=== PATIENT | female | born 1975 | race Hispanic/Latino ===

== ENCOUNTER 2018-10-31 11:02 | Emergency (ER) | payer OTHER ==
[~2018-10-31] VITALS: Ht 157.5 cm; Wt 80.7 kg
--- OUTSIDE RECORDS SUMMARY | 2018-10-31 11:05 | XMS REPORT ---
[facility] Address Unknown Phone Unavailable Care Team Providers Care Peripatologist Name Role Phone Unavailable Unavailable Payers Payer Name Policy Type Policy Number Effective Date Expiration Date Problems This patient has no known problems. Allergies, Adverse Reactions, Alerts Allergy Name Allergy Type Status Severity Reaction(s) Onset Date Inactive Date Treating Clinician Comments No Known Allergies DA Active U 2018-09-03 00:00:00 No Known Drug Intolerances DA Active U 2014-01-07 00:00:00 No Known Contrast Allergies DA Active U 2006-09-13 00:00:00 No Known Drug Allergies DA Active U 2006-09-13 00:00:00 No Known Food Allergies DA Active U 2006-09-13 00:00:00 No Known Other Allergies DA Active U 2006-09-13 00:00:00 Medications This patient has no known medications. Results Test Description Test Time Test Comments Text Results Atomic Results Result Comments BASIC METABOLIC PANEL 2018-09-03 13:34:00 SODIUM (test code=NA) 140 mmol/L 136-145 POTASSIUM (test code=K) 3.8 mmol/L 3.5-5.1 CHLORIDE (test code=CL) 109.0 mmol/L 98-107 CARBON DIOXIDE (test code=CO2) 24.0 mmol/L 21-32 ANION GAP (test code=GAP) 10.8 10-20 GLUCOSE (test code=GLU) 94 mg/dL 74-106 BLOOD UREA NITROGEN (test code=BUN) 15 mg/dL 7-18 GLOMERULAR FILTRATION RATE (test code=GFR) > 60 mL/min >=60 Estimated GFR by using Modified MDRD formula.Chronic kidney disease is defined as either kidney damageor GFR <60 mL/min/1.73 m2 for >3 months. CREATININE (test code=CREAT) 0.50 mg/dL 0.55-1.02 Note change in reference range due to change in reagent. BUN/CREATININE RATIO (test code=BUN/CREA) 30.0 10-20 CALCIUM (test code=CA) 8.7 mg/dL 8.5-10.1 CREATINE KINASE (CK)2018-09-03 13:34:00* Test Item Value Reference Range Comments CREATINE KINASE (CK) (test code=CK) 112 IUnit/L 26-208 HCG SERUM [id number] 13:34:00* Test Item Value Reference Range Comments HCG SERUM QUAL (test code=HCGQL) NEGATIVE NEGATIVE This HCGQL test is NOT applicable for MALE patients.Check with nurse about probable order error.If Tumor Marker Test needed, nurse should order test "HCGTU"(Test #550.47416) [id number] 13:34:00* Test Item Value Reference Range Comments TROPONIN-I (test code=TROPI) <0.015 ng/mL 0-0.045 BASIC METABOLIC [id number] 13:17:00* Test Item Value Reference Range Comments SODIUM (test code=NA) 140 mmol/L 136-145 POTASSIUM (test code=K) 3.8 mmol/L 3.5-5.1 CHLORIDE (test code=CL) 109.0 mmol/L 98-107 CARBON DIOXIDE (test code=CO2) mmol/L 21-32 ANION GAP (test code=GAP) 10-20 GLUCOSE (test code=GLU) mg/dL 74-106 BLOOD UREA NITROGEN (test code=BUN) mg/dL 7-18 GLOMERULAR FILTRATION RATE (test code=GFR) mL/min >=60 CREATININE (test code=CREAT) mg/dL 0.55-1.02 BUN/CREATININE RATIO (test code=BUN/CREA) 10-20 CALCIUM (test code=CA) mg/dL 8.5-10.1 CREATINE KINASE (CK)2018-09-03 13:17:00* Test Item Value Reference Range Comments CREATINE KINASE (CK) (test code=CK) IUnit/L 26-208 HCG SERUM [id number] 13:17:00* Test Item Value Reference Range Comments HCG SERUM QUAL (test code=HCGQL) NEGATIVE NEGATIVE This HCGQL test is NOT applicable for MALE patients.Check with nurse about probable order error.If Tumor Marker Test needed, nurse should order test "HCGTU"(Test #[id number]) [id number] 13:17:00* Test Item Value Reference Range Comments TROPONIN-I (test code=TROPI) ng/mL 0-0.045 PROTHROMBIN [id number] 13:16:00* Test Item Value Reference Range Comments PROTHROMBIN TIME PATIENT (test code=PTP) 11.3 seconds 9.0-14.0 INTERNATIONAL NORMAL RATIO (test code=INR) 0.9 0.8-1.2 The therapeutic range for oral anticoagulant therapy formost indications is an international normalized ratio (INR)of between 2.0 and 3.0. The recommended therapeutic INRrange for various clinical situations is listed below: Clinical Situation INR range Pulmonary e mbolism treatment (2.0-3.0)Venous thrombosis treatmentVenous thrombosis prophylaxis (high risk surgery)Prevention of systemic embolism from: Acute myocardial infarction Valvular heart disease Atrial fibrillation Mechanical prosthetic heart valves (2.5-3.5) IS PATIENT ON ANTICOAGULANTS? NTHROMBOPLASTIN TIME [id number] 13:16:00* Test Item Value Reference Range Comments THROMBOPLASTIN TIME PARTIAL (test code=PTT) 27.7 seconds 25.0-36.5 IS PATIENT ON ANTICOAGULANTS? NBASIC METABOLIC [id number] 13:15:00* Test Item Value Reference Range Comments SODIUM (test code=NA) mmol/L 136-145 POTASSIUM (test code=K) mmol/L 3.5-5.1 CHLORIDE (test code=CL) mmol/L 98-107 CARBON DIOXIDE (test code=CO2) mmol/L 21-32 ANION GAP (test code=GAP) 10-20 GLUCOSE (test code=GLU) mg/dL 74-106 BLOOD UREA NITROGEN (test code=BUN) mg/dL 7-18 GLOMERULAR FILTRATION RATE (test code=GFR) mL/min >=60 CREATININE (test code=CREAT) mg/dL 0.55-1.02 BUN/CREATININE RATIO (test code=BUN/CREA) 10-20 CALCIUM (test code=CA) mg/dL 8.5-10.1 CREATINE KINASE (CK)2018-09-03 13:15:00* Test Item Value Reference Range Comments CREATINE KINASE (CK) (test code=CK) IUnit/L 26-208 HCG SERUM [id number] 13:15:00* Test Item Value Reference Range Comments HCG SERUM QUAL (test code=HCGQL) NEGATIVE NEGATIVE This HCGQL test is NOT applicable for MALE patients.Check with nurse about probable order error.If Tumor Marker Test needed, nurse should order test "HCGTU"(Test #[id number]) [id number] 13:15:00* Test Item Value Reference Range Comments TROPONIN-I (test code=TROPI) ng/mL 0-0.045 CBC W/O [id number] 13:07:00* Test Item Value Reference Range Comments WHITE BLOOD CELL (test code=WBC) 10.1 K/mm3 4.5-12.5 RED BLOOD CELL (test code=RBC) 4.55 mill/mm3 3.7-5.2 HEMOGLOBIN (test code=HGB) 12.9 gram/dL 11.5-15.5 HEMATOCRIT (test code=HCT) 40.6 % 36.0-46.0 MEAN CELL VOLUME (test code=MCV) 89.2 fL 80-98 MEAN CELL HGB (test code=MCH) 28.4 picogram 27.0-33.0 MEAN CELL HGB CONCETRATION (test code=MCHC) 31.8 gram/dL 33.0-36.0 RED CELL DISTRIBUTION WIDTH (test code=RDW) 13.6 % 11.6-16.2 PLATELET COUNT (test code=PLT) 283 K/mm3 150-450 MEAN PLATELET VOLUME (test code=MPV) 10.6 fL 6.7-11.0 CBC W/O [id number] 13:06:00* Test Item Value Reference Range Comments WHITE BLOOD CELL (test code=WBC) K/mm3 4.5-12.5 RED BLOOD CELL (test code=RBC) mill/mm3 3.7-5.2 HEMOGLOBIN (test code=HGB) 12.9 gram/dL 11.5-15.5 HEMATOCRIT (test code=HCT) 40.6 % 36.0-46.0 MEAN CELL VOLUME (test code=MCV) fL 80-98 MEAN CELL HGB (test code=MCH) picogram 27.0-33.0 MEAN CELL HGB CONCETRATION (test code=MCHC) gram/dL 33.0-36.0 RED CELL DISTRIBUTION WIDTH (test code=RDW) % 11.6-16.2 PLATELET COUNT (test code=PLT) K/mm3 150-450 MEAN PLATELET VOLUME (test code=MPV) fL 6.7-11.0 - CT HEAD/BRAIN W/O [id number] 12:54:00 Name: MARTINARORYCRISTA BALES [facility] : 1975 Age/S: 43 / F [address] [facility] Unit #: [id number] Loc: [place] [address] Phys: Marsha Reyes MD Acct: [id number] Dis Date: Status: REG ER PHONE #: [phone] Exam Date: 09/03/2018 1230 FAX #: [phone] Reason: LEFT SIDED NUMBNESS EXAMS: CPT CODE: [id number] CT HEAD/BRAIN W/O CONT 02971 HISTORY: LEFT SIDED NUMBNESS TECHNIQUE: Noncontrast 2.[address] of the head. Examination acquired within 24 hours of arrival. Automated exposure control for dose reduction; DLP: 695 mGy-cm. COMPARISON: Brain MRI 01/07/14 FINDINGS: No acute hemorrhage. No CT evidence of acute infarct. No intracranial mass or mass effect. No hydrocephalus. No extra-axial fluid collection. Visualized paranasal sinuses are clear. Mastoid air cells and middle ear cavities are clear. Orbital contents are unremarkable. Calvarium and skull base are intact. IMPRESSION: No CT evidence of acute infarct. MRI would be more sensitive if there is continued clinical concern. No acute intracranial hemorrhage. at 1254 Reported and signed by: Mahogany Car D.O. CC: Marsha Reyes MD Technologist:JOSEPH MARROQUIN CTDI: DLP: Trnscb Date/Time: 09/03/2018 (2294) [email or web address] PAGE 1 Signed Report
[2018-10-31] MEDS ORDERED: IBUPROFEN 200 MG TAB PO STA (11:13)
[2018-10-31] MEDS ORDERED: ACETAMINOPHEN 325 MG TAB PO ONE (11:15)
[2018-10-31] MEDS ORDERED: ONDANSETRON HCL 4 MG ORAL DISINTEGRATING TAB PO ONE (11:15)
--- NOTE | 2018-10-31 12:29 | Diagnostic Imaging Report ---
Pelvis, 1 view. Right hip, 2 views. Right ankle, 3 views. Right elbow, 2 views. History: Pain. Findings: The soft tissues are normal. Bone mineralization is normal. There is no evidence of acute fracture or dislocation. There are no lytic or sclerotic lesions. DJD of the right elbow and right ankle are present. An enthesophyte is present in the right upper trochanter. The hip joints are within normal limits. Bone island is present above the right acetabulum. Surgical hardware is present in the proximal right foot with fusion of the proximal joints. IMPRESSION: No acute osseous abnormality. Degenerative changes of the right elbow and postsurgical changes in the right foot are noted. Signed by: Félix Keita on 10/31/2018 12:26 PM
[2018-10-31 12:54] VITALS: BP 156/78
== END 2018-10-31 12:56 | disposition home or self-care (01) ==
LOC: FSED 11:02
DX: G89.11 Acute pain due to trauma (principal); M25.571 Pain in right ankle and joints of right foot; S93.431A Sprain of tibiofibular ligament of right ankle, initial encounter; M25.521 Pain in right elbow; M25.551 Pain in right hip; W01.0XXA Fall on same level from slipping, tripping and stumbling without subsequent striking against object, initial encounter; Y93.01 Activity, walking, marching and hiking; Y92.008 Other place in unspecified non-institutional (private) residence as the place of occurrence of the external cause
CPT/HCPCS: 81025; 99283

== ENCOUNTER 2019-12-30 13:27 | Emergency (ER) | payer OTHER ==
[~2019-12-30] VITALS: Ht 160 cm; Wt 81.2 kg
--- NOTE | 2019-12-30 13:33 | Emergency Department Note ---
History of Present Illnes History of Present Illness Chief Complaint: abdominal pain History of Present Illness This is a 44 year old female, with a history of GERD, polio, anemia, and tennis elbow who presents with a six-day history of intermittent, right sided abdominal pain. She describes the pain as a "strong ache, boring pain," that is located primarily in the right upper quadrant, but radiates throughout the abdomen. She denies any radiation to the back or flank. She has had no associated nausea or vomiting. She did develop a low-grade fever last night of 99. Patient also began to have diarrhea yesterday, with multiple liquid, yellow stools. She states that she has had 6 loose bowel movements today, without blood or mucus. She denies any dysuria, frequency, or urgency. Abdominal surgeries include 3 and a tubal ligation. Patient was seen by her primary care physician last week, who ordered an ultrasound of her abdomen. His performed on 12/28/2019, and the results are pending. Historian: Patient Arrival Mode: Car Log Operations Coordinator Required: Yes (spouse translated) Onset (how long ago): day(s) (6) Location: right sided Quality: achy, crampy, boring pain Radiation: Reports non-radiation Severity: moderate Onset quality: sudden Duration (how long): day(s) (6) Timing of current episode: intermittent Progression: waxing and waning Chronicity: new Context: Denies recent illness, Denies recent surgery, Denies trauma/injury Relieving factors: none Exacerbating factors: eating (worsened last night) Associated symptoms: Reports fever/chills (low grade); Denies chest pain, Denies cough, Denies nausea/vomiting, Denies shortness of breath Treatments prior to arrival: none Risk factors: obesity Past Medical/Family History Physician Review I have reviewed the patient's past medical and family history. Any updates have been documented here. Past Medical History Recent Fever: Yes Clinical Suspicion of Infectio: No New/Unexplained Change in Ment: No Past Medical History: GERD Other Medical History: POLIO Past Surgical History: Tubal Ligation, (x3) Other Surgery: POLIO SURGERIES FOR HER LEGS Social History Smoking Cessation: Never Smoker Alcohol Use: None Any Illegal Drug Use: No TB Exposure/Symptoms: No Physically hurt or threatened: No Family History Family history of heart diseas: No Other Last Tetanus: UNKNOWN Any Pre-Existing Lines (PICC,: No Is patient up to date on immun: No Review of Systems Review of Systems Constitutional: Reports chills; Denies fever, Denies malaise, Denies weakness EENTM: Reports no symptoms Cardiovascular: Denies chest pain, Denies palpitations Respiratory: Denies chest congestion, Denies cough, Denies pain with cough, Denies dyspnea Gastrointestinal: Reports abdominal pain, Reports diarrhea; Denies constipation, Denies nausea, Denies vomiting Genitourinary: Denies discharge, Denies dysuria, Denies frequency Musculoskeletal: Denies back pain, Denies joint swelling Integumentary: Denies change in color, Denies rash Neurological: Denies headache, Denies numbness, Denies paresthesia Endocrine: Reports no symptoms Review of other systems: All other systems negative Physical Exam Related Data Allergies: Coded Allergies: No Known Allergies (Unverified , 10/31/18) Vital signs reviewed: Yes Physical Exam CONSTITUTIONAL Constitutional: Present well-developed, Present well-nourished, Present obese; Absent distressed, Absent ill appearing HENT HENT: Present normocephalic, Present atraumatic, Present oropharynx clear/moist, Present nose normal HENT L/R: Present left ext ear normal, Present right ext ear normal EYES Eyes: Reports PERRL, Reports conjunctivae normal NECK Neck: Present ROM normal PULMONARY Pulmonary: Present effort normal, Present breath sounds normal CARDIOVASCULAR Cardiovascular: Present regular rhythm, Present heart sounds normal, Present capillary refill normal, Present normal rate GASTROINTESTINAL Abdominal: Present soft, Present bowel sounds normal, Present tender (RUQ and RLQ ttp, wihtout rebound or guarding); Absent distension, Absent guarding, Absent rebound, Absent left CVA tenderness, Absent right CVA tenderness GENITOURINARY Genitourinary: Present exam deferred SKIN Skin: Present warm, Present dry; Absent rash, Absent jaundiced MUSCULOSKELETAL Musculoskeletal: Present ROM normal; Absent swelling NEUROLOGICAL Neurological: Present alert, Present oriented x 3; Absent cranial nerve deficit PSYCHOLOGICAL Psychological: Present mood/affect normal, Present behavior normal Results Laboratory Laboratory CBC - nl except WBC = 10.8, H/H = 9.9/31.7; CMP - nl except for K+ = 3.2; UPT - negative UA - glu - 100 mg/dl, timbo - small, ket = 80 mg/dl, blo - lg, pro = 100 mg/dl; Lab results reviewed: Yes Imaging Imaging results reviewed: Yes Impressions Exam Date: 12/30/19 Exam Time: 1510 REPORT STATUS: Signed EXAMINATION: CT of the abdomen and pelvis with contrast. TECHNIQUE: Spiral CT images of the abdomen and pelvis were performed from the lung bases to the lesser trochanters after the intravenous administration of 100 cc of Isovue 370 and the oral administration of water. Coronal and sagittal reformatted images were obtained. COMPARISON: None. CLINICAL HISTORY:Right upper quadrant abdominal pain with diarrhea for 2 days DISCUSSION: ABDOMEN/PELVIS: LOWER THORAX:Unremarkable. HEPATOBILIARY: No focal hepatic lesions. No intra or extrahepatic biliary ductal dilation. GALLBLADDER: No radio-opaque stones or sludge. No wall thickening. SPLEEN: No splenomegaly. PANCREAS: No focal masses or ductal dilatation. ADRENALS: No adrenal nodules. KIDNEYS/URETERS: No hydronephrosis, stones, or solid mass lesions. PELVIC ORGANS/BLADDER: Bladder and uterus are unremarkable. No adnexal masses. 2.6 cm well-circumscribed fluid density simple follicular cyst in the right ovary (series 2, image 73). PERITONEUM/RETROPERITONEUM: No free air or fluid. LYMPH NODES: No intra-abdominal, retroperitoneal, pelvic or inguinal lymphadenopathy. Mildly prominent although subcentimeter lymph nodes in the ileocolic vessel distribution (series 2, image 43). VESSELS: The celiac trunk,superior and inferior mesenteric and bilateral renal arteries are patent The portal, superior mesenteric and splenic veins are patent. GI TRACT: Mild to moderate circumferential wall thickening involving the cecum, ascending, distal transverse, descending, and proximal sigmoid colon with associated mild prominence of the vasa recta and very mild surrounding stranding, predominantly in the right colon (best visualized on coronal image 50, 34 and 60). Appendix is well identified and normal in caliber. Small bowel shows no wall thickening, dilation or obstruction. Stomach is unremarkable. BONES AND SOFT TISSUE: No aggressive lytic or suspicious focal sclerotic lesions . Mildly degenerated disks at L4-L5 and L3-L4 with mild associated leftward curvature. Marked fatty atrophy of the right gluteus yahaira, medius and minimus muscles. Mild fatty atrophy of the paraspinal muscles. IMPRESSION: 1. Findings consistent with colitis, which may be of infectious or inflammatory etiology. No evidence of perforation or abscess formation. 2. Marked fatty atrophy of the right gluteal musculature and to a lesser degree paraspinal muscles. Signed by: Dr. Tiera Loaiza M.D. on 12/30/2019 3:55 PM Dictated By: TIERA LOAIZA MD 54 Transcribed By: SHAKIRA on 12/30/191554 COPY TO: PALMA MUNOZ MD~ Diagnostics Tests Diagnostic test(s) reviewed: Yes Assessment & Plan Medical Decision Making MDM Recommend a BLAND diet, avoiding FRIED, FATTY, FAST, AND SPICY foods. Follow the LOW Residue diet provided. You may Take IMODIUM AD - 1 tab 4x/day, as needed, for diarrhea. Drink plenty of fluids, especially water, Pedialyte and G-2 gatorade. Avoid juices and sodas, as these can make diarrhea worse. Follow-up with your Home Maker, regarding this ER visit, and the diagnosis of "Colitis." Return to the ED, if your symptoms worsen. Assessment & Plan Final Impression: (1) Colitis (2) Hypokalemia (3) Anemia (4) Chronic GERD Depart Disposition: HOME, SELF-intermediate Meds Active Scripts Dicyclomine Hcl (DICYCLOMINE HCL) 20 Mg Tablet, 1 TAB PO Q6H PRN for abdominal pain, #30 TAB 0 Refills Prov:PALMA MUNOZ MD 12/30/19 Ondansetron (ONDANSETRON ODT) 8 Mg Tab.rapdis, 4 MG PO Q6H for nausea, #30 TAB 0 Refills Prov:PALMA MUNOZ MD 12/30/19 Metronidazole (METRONIDAZOLE) 500 Mg Tablet, 500 MG PO TID for infection for 10 Days, #30 TAB 0 Refills Prov:PALMA MUNOZ MD 12/30/19 Ciprofloxacin Hcl (CIPRO) 500 Mg Tablet, 1 TAB PO BID for infection for 10 Days, #20 MG 0 Refills Prov:PALMA MUONZ MD 12/30/19 PALMA MUNOZ MD Dec 30, 2019 13:33
[2019-12-30] MEDS ORDERED: SODIUM CHLORIDE 0.9% 1000ML 1,000 ML IV SCH (14:30)
[2019-12-30] MEDS ORDERED: POTASSIUM CHLORIDE 20 MEQ TAB CR PO STA (14:31)
[2019-12-30] MEDS ORDERED: SODIUM CHLORIDE 0.9% 50ML 50 ML ONE (15:08)
[2019-12-30] MEDS ORDERED: IOPAMIDOL 370 MG/ML 200 ML INFUS..BTL INJ ONE (15:09)
--- NOTE | 2019-12-30 15:58 | Diagnostic Imaging Report ---
EXAMINATION: CT of the abdomen and pelvis with contrast. TECHNIQUE: Spiral CT images of the abdomen and pelvis were performed from the lung bases to the lesser trochanters after the intravenous administration of 100 cc of Isovue 370 and the oral administration of water. Coronal and sagittal reformatted images were obtained. COMPARISON: None. CLINICAL HISTORY:Right upper quadrant abdominal pain with diarrhea for 2 days DISCUSSION: ABDOMEN/PELVIS: LOWER THORAX:Unremarkable. HEPATOBILIARY: No focal hepatic lesions. No intra or extrahepatic biliary ductal dilation. GALLBLADDER: No radio-opaque stones or sludge. No wall thickening. SPLEEN: No splenomegaly. PANCREAS: No focal masses or ductal dilatation. ADRENALS: No adrenal nodules. KIDNEYS/URETERS: No hydronephrosis, stones, or solid mass lesions. PELVIC ORGANS/BLADDER: Bladder and uterus are unremarkable. No adnexal masses. 2.6 cm well-circumscribed fluid density simple follicular cyst in the right ovary (series 2, image 73). PERITONEUM/RETROPERITONEUM: No free air or fluid. LYMPH NODES: No intra-abdominal, retroperitoneal, pelvic or inguinal lymphadenopathy. Mildly prominent although subcentimeter lymph nodes in the ileocolic vessel distribution (series 2, image 43). VESSELS: The celiac trunk,superior and inferior mesenteric and bilateral renal arteries are patent The portal, superior mesenteric and splenic veins are patent. GI TRACT: Mild to moderate circumferential wall thickening involving the cecum, ascending, distal transverse, descending, and proximal sigmoid colon with associated mild prominence of the vasa recta and very mild surrounding stranding, predominantly in the right colon (best visualized on coronal image 50, 34 and 60). Appendix is well identified and normal in caliber. Small bowel shows no wall thickening, dilation or obstruction. Stomach is unremarkable. BONES AND SOFT TISSUE: No aggressive lytic or suspicious focal sclerotic lesions . Mildly degenerated disks at L4-L5 and L3-L4 with mild associated leftward curvature. Marked fatty atrophy of the right gluteus yahaira, medius and minimus muscles. Mild fatty atrophy of the paraspinal muscles. IMPRESSION: 1. Findings consistent with colitis, which may be of infectious or inflammatory etiology. No evidence of perforation or abscess formation. 2. Marked fatty atrophy of the right gluteal musculature and to a lesser degree paraspinal muscles. Signed by: Dr. Sukhjinder Ely M.D. on 12/30/2019 3:55 PM
[2019-12-30] MEDS ORDERED: CIPRO500 MG PO (16:14)
[2019-12-30] MEDS ORDERED: METRONIDAZOLE500 MG PO (16:16)
[2019-12-30] MEDS ORDERED: ONDANSETRON ODT8 MG PO (16:18)
[2019-12-30] MEDS ORDERED: DICYCLOMINE HCL20 MG PO (16:39)
== END 2019-12-30 16:46 | disposition home or self-care (01) ==
LOC: FSED 14:17
DX: R10.11 Right upper quadrant pain (principal); K52.9 Noninfective gastroenteritis and colitis, unspecified; K21.9 Gastro-esophageal reflux disease without esophagitis; E87.6 Hypokalemia; D64.9 Anemia, unspecified; Z86.12 Personal history of poliomyelitis
CPT/HCPCS: 74177; 80053; 81003; 81025; 85025; 99284; J7030; Q9967

== ENCOUNTER → 2020-01-17 | Day surgery (SDC) | payer OTHER ==
[~2020-01-17] MED LIST: CIPRO500 MG PO; DICYCLOMINE HCL20 MG PO; FAMOTIDINE20 MG PO; LIDOCAINE HCL 2% LOCAL INJ 5 ML SDV VIAL INJ ONE; METRONIDAZOLE500 MG PO; OMEPRAZOLE40 MG PO; ONDANSETRON ODT8 MG PO; PROPOFOL IV EMULSION 10 MG/ML 20 ML VIAL ONE
[2020-01-17 09:15] VITALS: BP 123/78
== END | disposition home or self-care (01) ==
LOC: OR 06:23
PROVIDERS: ATTEND Internal Medicine Gastroenterology
DX: D50.9 Iron deficiency anemia, unspecified (principal); K29.50 Unspecified chronic gastritis without bleeding; K50.00 Crohn's disease of small intestine without complications; K63.3 Ulcer of intestine; K21.9 Gastro-esophageal reflux disease without esophagitis; K64.8 Other hemorrhoids; Z71.3 Dietary counseling and surveillance; E66.9 Obesity, unspecified; Z01.812 Encounter for preprocedural laboratory examination; Z11.59 Encounter for screening for other viral diseases; Z68.32 Body mass index [BMI] 32.0-32.9, adult; Z86.12 Personal history of poliomyelitis
CPT/HCPCS: 43239; 45380; 81025; J2001; J2704; U0002; 45378

== ENCOUNTER 2020-10-13 16:35 | Emergency (ER) | payer OTHER ==
[~2020-10-13] VITALS: Ht 160 cm; Wt 89.0 kg
[~2020-10-13 16:35] MED LIST changes: -LIDOCAINE HCL 2% LOCAL INJ 5 ML SDV VIAL INJ ONE; -PROPOFOL IV EMULSION 10 MG/ML 20 ML VIAL ONE
[2020-10-13] MEDS ORDERED: SODIUM CHLORIDE 0.9% 1000ML 1,000 ML IV STA (17:07)
[2020-10-13] MEDS ORDERED: FAMOTIDINE 20 MG/2 ML VIAL IV ONE ×2 (17:15→17:31)
[2020-10-13] MEDS ORDERED: KETOROLAC TROMETHAMINE 30 MG/ML VIAL IV ONE (17:15)
[2020-10-13] MEDS ORDERED: ONDANSETRON HCL INJ 2MG/ML 2ML 2 MG/ML VIAL IV ONE (17:15)
[2020-10-13] MEDS ORDERED: ONDANSETRON HCL INJ 2MG/ML 2ML 2 MG/ML VIAL ONE (17:30)
[2020-10-13] MEDS ORDERED: SODIUM CHLORIDE 0.9% 1000ML 1,000 ML ONE (17:30)
[2020-10-13] MEDS ORDERED: KETOROLAC TROMETHAMINE 30 MG/ML VIAL ONE (17:30)
[2020-10-13] MEDS ORDERED: SODIUM CHLORIDE 0.9% 50ML 50 ML ONE (17:33)
[2020-10-13] MEDS ORDERED: IOPAMIDOL 370 MG/ML 200 ML INFUS..BTL INJ ONE (17:34)
[2020-10-13] MEDS ORDERED: ULTRAM 50MG50 MG PO (20:36)
[2020-10-13] MEDS ORDERED: OMEPRAZOLE20 M2 PO (20:39)
[2020-10-13 21:04] VITALS: BP 120/64
== END 2020-10-13 20:51 | disposition home or self-care (01) ==
LOC: FSED 16:45
DX: R10.30 Lower abdominal pain, unspecified (principal); M54.5 Low back pain; K29.70 Gastritis, unspecified, without bleeding; K21.9 Gastro-esophageal reflux disease without esophagitis; Z86.12 Personal history of poliomyelitis
CPT/HCPCS: 74177; 80053; 81003; 81025; 85025; 96374; 96375; 99284; J1885; J2405; J7030; Q9967

== ENCOUNTER 2021-11-16 08:27 | Emergency (ER) | payer OTHER ==
[~2021-11-16] VITALS: Ht 160 cm; Wt 85.7 kg
[~2021-11-16 08:27] MED LIST changes: +OMEPRAZOLE20 M2 PO; +ULTRAM 50MG50 MG PO
[2021-11-16] MEDS ORDERED: PREDNISONE20 MG PO (10:12)
[2021-11-16] MEDS ORDERED: VALTREX1000 MG PO (10:13)
== END 2021-11-16 10:49 | disposition home or self-care (01) ==
LOC: FSED 08:35
DX: G51.0 Bell's palsy (principal); M62.561 Muscle wasting and atrophy, not elsewhere classified, right lower leg; K21.9 Gastro-esophageal reflux disease without esophagitis; Z86.12 Personal history of poliomyelitis
CPT/HCPCS: 70450; 99283